=== PATIENT | female | born 1975 | race Caucasian/White ===

== ENCOUNTER 2024-07-15 22:49 | Emergency (ER) | payer BC, MEDICAID, OTHER ==
[~2024-07-15] VITALS: Ht 165.1 cm; Wt 96.0 kg
[2024-07-15 23:09] VITALS: TEMP 36.7; O2SAT 99
[2024-07-16 00:08] VITALS: BP 142/78; PULSE 80; RESP 18
[2024-07-16] MEDS: IBUPROFEN 600MG TABLET PO ONE (00:08)
[2024-07-16] MEDS ORDERED: IBUP-2029 MT (00:57)
== END 2024-07-16 01:14 | disposition home or self-care (01) ==
LOC: ER 22:49
DX: S09.90XA Unspecified injury of head, initial encounter (principal); M54.2 Cervicalgia; M54.6 Pain in thoracic spine; V49.40XA Driver injured in collision with unspecified motor vehicles in traffic accident, initial encounter; Y93.89 Activity, other specified; Y92.89 Other specified places as the place of occurrence of the external cause; Y99.8 Other external cause status
CPT/HCPCS: 71045; 99283